=== PATIENT | female | born 1950 | race Caucasian/White ===

== ENCOUNTER 2016-10-26 06:22 | Day surgery (SDC) | payer BC ==
[2016-10-26] MEDS ORDERED: Bupivacaine 0.25%/EPINEPHrine 1:200,000 10 ML SDV INJECT ONE (07:00)
[2016-10-26] MEDS ORDERED: ceFAZolin 2 GM in Premix Bag 1 BAG IV ONE (07:00)
[2016-10-26] MEDS ORDERED: Acetaminophen/HYDROcodone 325-5 MG Tab PO PRN (07:00)
[2016-10-26] MEDS ORDERED: Lactated Ringers 1,000 ML IV SCH (07:00)
[2016-10-26] MEDS ORDERED: Bupivacaine 0.25%/EPINEPHrine 1:200,000 10 ML SDV ONE (07:21)
[2016-10-26] MEDS ORDERED: fentaNYL 100 MCG/2 ML SDV ONE (07:23)
[2016-10-26] MEDS ORDERED: Midazolam 1 MG/ML 2 ML SDV ONE (07:23)
[2016-10-26] MEDS ORDERED: Propofol 200 MG/20 ML SDV ONE (07:23)
[2016-10-26] MEDS ORDERED: Lidocaine 2% 5 ML SDV ONE (07:23)
[2016-10-26] MEDS ORDERED: ceFAZolin 1 GM Vial ONE (07:24)
[2016-10-26] MEDS ORDERED: Sodium Chloride 0.9% 20 ML ONE (07:24)
--- NOTE | 2016-10-26 07:30 | PCM.PREANE ---
Preanesthetic Assessment - Anesthesia/Transfusion/Family Hx Anesthesia History: Prior Anesthesia Without Reaction Other Type of Anesthesia Reaction Comment: Denies any known problems,Distant Relative-pseudo cholinesterone inhibitord Family History of Anesthesia Reaction: No Transfusion History: No Prior Transfusion(s) - Review of Systems General: No Symptoms Pulmonary: No Symptoms Cardiovascular: No Symptoms Gastrointestinal: No symptoms Neurological: No Symptoms Other: Reports: None - Physical Assessment O2 Sat by Pulse Oximetry: 96 Respiratory Rate: 16 Vital Signs: Last Vital Signs Temp 36.7 C 10/26/16 06:41 Pulse 71 10/26/16 06:41 Resp 16 10/26/16 06:41 BP 134/60 10/26/16 06:41 Pulse Ox 96 10/26/16 06:41 Height: 1.56 m Weight: 88.451 kg ASA Class: 3 Mental Status: Alert & Oriented x3 Airway Class: Mallampati = 2 Dentition: Reports: Normal Dentition Lungs: Clear to auscultation Cardiovascular: Regular Rate - Allergies Allergies/Adverse Reactions: Allergies Allergy/AdvReac Type Severity Reaction Status Date / Time latex Allergy Itching Verified 10/03/14 01:05 nickel Allergy Rash Verified 10/03/14 01:05 trimethobenzamide HCl Allergy Cannot Verified 10/03/14 01:05 [From Tigan] Remember Bandaids Allergy Itching Uncoded 10/03/14 01:05 Honeydew Melon Allergy Difficulty Uncoded 10/03/14 01:05 Swallowing - Acknowledgements Anesthesia Type Planned: MAC Pt an Appropriate Candidate for the Planned Anesthesia: Yes Alternatives and Risks of Anesthesia Discussed w Pt/Guardian: Yes Pt/Guardian Understands and Agrees with Anesthesia Plan: Yes Additional Comments: has coronary stent, last asa dose 2 days ago, betablocker dose last night PreAnesthesia Questionnaire HEENT History: Reports: Allergic Rhinitis, Other (See Below) Other HEENT History: wears glasses Cardiovascular History: Reports: CAD, High Cholesterol, Hypertension, [place], Stents , Other (See Below) Gastrointestinal History: Reports: Colon Polyp, GERD Genitourinary History: Reports: None 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: Musculoskeletal History: Reports: Osteoarthritis, Other (See Below) Other Musculoskeletal History: fx cassia wrist, left humerous Psychiatric History: Reports: Depression Endocrine/Metabolic History: Reports: Obesity/BMI 30+ Oncologic (Cancer) History: Reports: Other (See Below) 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 Dermatologic History: Reports: None - Past Surgical History Head Surgeries/Procedures: Reports: None HEENT Surgical History: Reports: Adenoidectomy, Tonsillectomy Cardiovascular Surgical History: Reports: Coronary Artery Stent GI Surgical History: Reports: Colonoscopy Female Surgical History: Reports: D&C Musculoskeletal Surgical History: Reports: Arthroscopic Knee, Knee Replacement Dermatological Surgical History: Reports: Skin Biopsy - SUBSTANCE USE Smoking Status *Q: Never Smoker Second Hand Smoke Exposure: No Days Per Week of Alcohol Use: 0 Number of Drinks Per Day: 1 Total Drinks Per Week: 0 Recreational Drug Use History: No - HOME MEDS Home Medications: Home Meds Citalopram Hydrobromide [Citalopram HBr] 20 mg PO BEDTIME 06/03/14 [History] Loratadine [Claritin] 1 tab PO DAILY 06/03/14 [History] Metoprolol Succinate 50 mg PO BEDTIME 05/22/16 [History] Multivitamin [Multivitamins] 1 tab PO DAILY 05/22/16 [History] Olmesartan [Benicar] 20 mg PO DAILY 05/22/16 [History] Ranitidine [Zantac] 300 mg PO BID 05/22/16 [History] Spironolactone [Aldactone] 25 mg PO DAILY 05/22/16 [History] Aspirin 81 mg PO BID 10/22/16 [History] - CURRENT (IN HOUSE) MEDS Current Meds: Current Medications Hydrocodone Bitart/Acetaminophen ([place] 325-5 Mg) 1 tab PO Q4H PRN PRN Reason: Pain Lactated Ringer's (Ringers, Lactated) 1,000 mls @ 125 mls/hr IV ASDIRECTED [facility] Last Admin: 10/26/16 06:44 Dose: 125 mls/hr Cefazolin Sodium/Dextrose 2 gm (/ Premix) 50 mls @ 100 mls/hr IV ONETIME ONE Stop: 10/26/16 07:29 Discontinued Medications Bupivacaine HCl/Epinephrine Bitart (Marcaine 0.25%/Epinephrine 1:200,000) 10 ml INJECT ONETIME ONE Stop: 10/26/16 07:01 Bupivacaine HCl/Epinephrine Bitart (Marcaine 0.25%/Epinephrine 1:200,000) Confirm Administered Dose 20 ml .ROUTE .STK-MED ONE Stop: 10/26/16 07:22 Cefazolin Sodium (Ancef) Confirm Administered Dose 2 gm .ROUTE .STK-MED ONE Stop: 10/26/16 07:25 Fentanyl (Sublimaze) Confirm Administered Dose 100 mcg .ROUTE .STK-MED ONE Stop: 10/26/16 07:24 Sodium Chloride (Normal Saline) Confirm Administered Dose 20 mls @ as directed .ROUTE .STK-MED ONE Stop: 10/26/16 07:25 Lidocaine (Xylocaine-Mpf 2%) Confirm Administered Dose 5 ml .ROUTE .STK-MED ONE Stop: 10/26/16 07:24 Midazolam HCl (Versed 1 Mg/Ml) Confirm Administered Dose 2 mg .ROUTE .STK-MED ONE Stop: 10/26/16 07:24 Propofol (Diprivan 20 Ml) Confirm Administered Dose 200 mg .ROUTE .STK-MED ONE Stop: 10/26/16 07:24
[2016-10-26 09:19] VITALS: BP 120/59
--- NOTE | 2016-10-26 09:38 | PCM48HPAN ---
Post Anesthesia Note - EVALUATION WITHIN 48HRS OF ANESTHETIC Vital Signs in Normal Range: Yes Patient Participated in Evaluation: Yes Respiratory Function Stable: Yes Airway Patent: Yes Cardiovascular Function Stable: Yes Hydration Status Stable: Yes Pain Control Satisfactory: Yes Nausea and Vomiting Control Satisfactory: Yes Mental Status Recovered: Yes
--- NOTE | 2016-10-27 10:31 | PCM.OPNOTE ---
- General Post-Op/Procedure Note Date of Surgery/Procedure: 10/26/16 Operative Procedure(s): right carpal tunnel release Pre Op Diagnosis: right capral tunnel syndrome Post-Op Diagnosis: Same Anesthesia Technique: Local, MAC Primary Surgeon: Dionne Boswell Manager Heart Failure: Jo Ann Parada Complications: None Condition: Good Free Text/Narrative:: [id number]
--- NOTE | 2016-10-27 12:20 | OR ---
SURGEON: ARMANDO THOMAS MD ELECTROMECHANICAL EQUIPMENT ASSEMBLER: GOPI Morales DATE OF PROCEDURE: 10/26/2016 PREOPERATIVE DIAGNOSIS: Right carpal tunnel syndrome. POSTOPERATIVE DIAGNOSIS: Right carpal tunnel syndrome. PROCEDURE: Right carpal tunnel release. INDICATIONS: Ms. Wayne is seen today as a 65-year-old female with carpal tunnel syndrome bilaterally. She would like to proceed with the right side first. Risks and benefits of the carpal tunnel release were discussed, and she was in agreement to proceed. Risks were including, but not limited to bleeding, infection, damage to underlying or overlying structures, possible need for future interventions, and possible scarring. PROCEDURE IN DETAIL: After informed consent was obtained and placed on the chart, the patient was brought to the operating theater and laid in the supine position. After adequate local MAC anesthesia was obtained, the area was prepped and draped in normal fashion and time-out was completed to confirm side and site. The arm was then exsanguinated and the tourniquet was inflated to 200 mmHg. Once adequately insufflated, attention was then paid to dissection over the transverse carpal ligament. A #15 blade was used to dissect through skin and subcutaneous tissues until breach to the ligament. Once adequately breached, the dissection was carried distally and proximally under direct visualization until complete release of the ligament. Once adequately released, the area was copiously irrigated and a 5-0 nylon stitch was used to close the skin in a horizontal mattress fashion. Once adequately closed, the wound was dressed with Xeroform, fluffs, and a Kerlix gauze dressing. A 2-inch ASHLEY wrap was used to cover this. The patient tolerated the procedure well. All counts and needles were correct at the end of the case. FOLLOWUP INSTRUCTIONS: The patient will see us in clinic in 10 to 14 days for suture removal sooner if any problems, questions, or concerns. She was given a prescription for pain control. ZORAIDA / BARB /[id number] MTDKimberley
== END 2016-10-26 09:40 | disposition home or self-care (01) ==
LOC: MW.SDS 06:22
PROVIDERS: ATTEND Plastic Surgery
PROC: 01N50ZZ Release Median Nerve, Open Approach (ICD-10-PCS; principal; 2016-10-26)
DX: G56.01 Carpal tunnel syndrome, right upper limb (principal); I25.10 Atherosclerotic heart disease of native coronary artery without angina pectoris; E78.00 Pure hypercholesterolemia, unspecified; I10 Essential (primary) hypertension; I25.2 Old myocardial infarction; K21.9 Gastro-esophageal reflux disease without esophagitis; M19.90 Unspecified osteoarthritis, unspecified site; F32.9 Major depressive disorder, single episode, unspecified; Z88.8 Allergy status to other drugs, medicaments and biological substances; Z91.018 Allergy to other foods; Z91.040 Latex allergy status; Z91.048 Other nonmedicinal substance allergy status; Z87.19 Personal history of other diseases of the digestive system; Z85.820 Personal history of malignant melanoma of skin; Z95.5 Presence of coronary angioplasty implant and graft; Z96.659 Presence of unspecified artificial knee joint; Z90.89 Acquired absence of other organs; Z98.890 Other specified postprocedural states; Z79.899 Other long term (current) drug therapy; Z79.82 Long term (current) use of aspirin
CPT/HCPCS: 64721; J0690; J2250; J3010; J7120; 01810; J2704

== ENCOUNTER 2016-11-07 06:30 | Day surgery (SDC) | payer BC ==
[~2016-11-07 06:30] MED LIST: Lactated Ringers 1,000 ML IV SCH
--- NOTE | 2016-11-07 07:16 | PCM.PREANE ---
Preanesthetic Assessment - Anesthesia/Transfusion/Family Hx Anesthesia History: Prior Anesthesia Without Reaction Other Type of Anesthesia Reaction Comment: Denies any known problems,Distant Relative-pseudo cholinesterone inhibitord Family History of Anesthesia Reaction: No Transfusion History: No Prior Transfusion(s) - Review of Systems General: No Symptoms Pulmonary: No Symptoms Cardiovascular: No Symptoms Gastrointestinal: No symptoms Neurological: No Symptoms Other: Reports: None - Physical Assessment NPO Status Date: 11/06/16 Height: 1.56 m Weight: 88.451 kg ASA Class: 3 Mental Status: Alert & Oriented x3 Airway Class: Mallampati = 2 Dentition: Reports: Normal Dentition ROM/Head Extension: Full Lungs: Clear to auscultation, Normal respiratory effort Cardiovascular: Regular Rate, Regular Rhythm - Allergies Allergies/Adverse Reactions: Allergies Allergy/AdvReac Type Severity Reaction Status Date / Time latex Allergy Itching Verified 10/03/14 01:05 nickel Allergy Rash Verified 10/03/14 01:05 trimethobenzamide HCl Allergy Cannot Verified 10/03/14 01:05 [From Tigan] Remember Bandaids Allergy Itching Uncoded 10/03/14 01:05 Honeydew Melon Allergy Difficulty Uncoded 10/03/14 01:05 Swallowing - Anesthesia Plan Pre-Op Medication Ordered: None - Acknowledgements Anesthesia Type Planned: General Anesthesia Pt an Appropriate Candidate for the Planned Anesthesia: Yes Alternatives and Risks of Anesthesia Discussed w Pt/Guardian: Yes Pt/Guardian Understands and Agrees with Anesthesia Plan: Yes Additional Comments: off aspirin x 1 wk, last metopralol yest pm PreAnesthesia Questionnaire HEENT History: Reports: Allergic Rhinitis, Other (See Below) Other HEENT History: wears glasses Cardiovascular History: Reports: CAD, High Cholesterol, Hypertension, [place], Stents , Other (See Below) Gastrointestinal History: Reports: Colon Polyp, GERD Genitourinary History: Reports: None 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: Musculoskeletal History: Reports: Osteoarthritis, Other (See Below) Other Musculoskeletal History: fx cassia wrist, left humerous Psychiatric History: Reports: Depression Endocrine/Metabolic History: Reports: Obesity/BMI 30+ Oncologic (Cancer) History: Reports: Other (See Below) 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 Dermatologic History: Reports: None - Past Surgical History Head Surgeries/Procedures: Reports: None HEENT Surgical History: Reports: Adenoidectomy, Tonsillectomy Cardiovascular Surgical History: Reports: Coronary Artery Stent GI Surgical History: Reports: Colonoscopy Female Surgical History: Reports: D&C Musculoskeletal Surgical History: Reports: Arthroscopic Knee, Carpal Tunnel, Knee Replacement - SUBSTANCE USE Smoking Status *Q: Never Smoker Second Hand Smoke Exposure: No Days Per Week of Alcohol Use: 0 Number of Drinks Per Day: 1 Total Drinks Per Week: 0 Recreational Drug Use History: No - HOME MEDS Home Medications: Home Meds Citalopram Hydrobromide [Citalopram HBr] 20 mg PO BEDTIME 06/03/14 [History] Loratadine [Claritin] 1 tab PO DAILY 06/03/14 [History] Metoprolol Succinate 50 mg PO BEDTIME 05/22/16 [History] Multivitamin [Multivitamins] 1 tab PO DAILY 05/22/16 [History] Olmesartan [Benicar] 20 mg PO DAILY 05/22/16 [History] Ranitidine [Zantac] 300 mg PO BID 05/22/16 [History] Spironolactone [Aldactone] 25 mg PO DAILY 05/22/16 [History] Aspirin 81 mg PO BID 10/22/16 [History] Hydrocodone/Acetaminophen [Hydrocodon-Acetaminophen 5-325] 1 tab PO ASDIRECTED PRN 10/31/16 [History] - CURRENT (IN HOUSE) MEDS Current Meds: Current Medications Hydrocodone Bitart/Acetaminophen ([place] 325-5 Mg) 1 - 2 tab PO Q4H PRN PRN Reason: Pain Lactated Ringer's (Ringers, Lactated) 1,000 mls @ 100 mls/hr IV ASDIRECTED SANDRA Cefazolin Sodium/Dextrose 2 gm (/ Premix) 50 mls @ 100 mls/hr IV ONCALL SANDRA
[2016-11-07] MEDS ORDERED: ASPIRIN PO ONE (07:34)
[2016-11-07] MEDS ORDERED: Ondansetron 4 MG/2 ML SDV ONE ×2 (07:34→12:28)
[2016-11-07] MEDS ORDERED: Propofol 200 MG/20 ML SDV ONE ×2 (07:35→12:03)
[2016-11-07] MEDS ORDERED: fentaNYL 100 MCG/2 ML SDV ONE ×2 (07:35→12:03)
[2016-11-07] MEDS ORDERED: Midazolam 1 MG/ML 2 ML SDV ONE ×2 (07:35→12:03)
[2016-11-07] MEDS ORDERED: Lidocaine 2% 5 ML SDV ONE ×2 (07:35→12:03)
[2016-11-07] MEDS ORDERED: Lidocaine 1% 50 ML MDV ONE (07:39)
[2016-11-07] MEDS ORDERED: Bupivacaine 0.25%/EPINEPHrine 1:200,000 10 ML SDV ONE (07:39)
[2016-11-07] MEDS ORDERED: ceFAZolin 2 GM in Premix Bag 1 BAG IV SCH (08:00)
[2016-11-07] MEDS ORDERED: Acetaminophen/HYDROcodone 325-5 MG Tab PO PRN (09:00)
[2016-11-07] MEDS ORDERED: diphenhydrAMINE 50 MG/ML SDV ONE (12:37)
--- NOTE | 2016-11-07 13:38 | PCM.POSTAN ---
POST ANESTHESIA ASSESSMENT - MENTAL STATUS Mental Status: alert, oriented - RESPIRATORY Respiratory Status: respiratory rate WNL, airway patent - CARDIOVASCULAR CV Status: pulse rate WNL, blood pressure stable - GASTROINTESTINAL GI Status: no symptoms - PAIN Pain Score: 0 - POST OP HYDRATION Hydration Status: adequate & stable
[2016-11-07 14:03] VITALS: BP 93/54
--- NOTE | 2016-11-07 18:59 | PCM.OPNOTE ---
- General Post-Op/Procedure Note Date of Surgery/Procedure: 11/07/16 Operative Procedure(s): left carpal tunnel release Pre Op Diagnosis: left carpal tunnel syndrome Post-Op Diagnosis: Same Anesthesia Technique: Local, MAC Primary Surgeon: Dionne Boswell Substation Superintendent: Jo Ann Parada Complications: None Condition: Good Free Text/Narrative:: Intake & Output 11/07/16 11/07/16 11/07/16 07:59 15:59 23:59 Intake Total 1899 Balance 1899
--- NOTE | 2016-11-12 09:10 | OR ---
SURGEON: ARMANDO THOMAS MD DATE OF PROCEDURE: 11/07/2016 PREOPERATIVE DIAGNOSIS: Left carpal tunnel syndrome. POSTOPERATIVE DIAGNOSIS: Left carpal tunnel syndrome. PROCEDURE: Left carpal tunnel release. ANESTHESIA: Local MAC. PROGRESSIVE ASSEMBLER AND FITTER: SANYA Pham INDICATIONS: Ms. Wayne is a 65-year-old female seen today for left carpal tunnel syndrome. She has had release of her right two weeks ago. She is here for release of the left. Risks and benefits were discussed again and she was in agreement to proceed. Risks were including, but not limited to, bleeding, infection, damage to underlying or overlying structures, possible need for future interventions and possible scarring. PROCEDURE IN DETAIL: After informed consent was obtained and placed on the chart, the patient was brought to the operating theater and laid in supine position. After adequate prepping and draping, a time-out was completed to confirm side and site. Attention was then paid to exsanguination of the arm and insufflation of the tourniquet to 200 mmHg. Once adequately completed, attention was then paid to dissection over the transverse carpal ligament. A 15 blade was used to dissect through skin and subcutaneous tissues until breach of the ligament. Attention was then paid to dissection distally and proximally until complete release of the ligament was appreciated. The area was irrigated and a 5-0 nylon stitch was then used to close in an interrupted fashion. The wound was dressed with Xeroform, fluffs, and a Kerlix gauze dressing and a 2-inch ASHLEY wrap. Tourniquet was desufflated and all counts and needles were correct at the end of the case. FOLLOWUP INSTRUCTIONS: The patient will see us in clinic in approximately 10 days or sooner if any problems, questions, or concerns. She was given a prescription for pain control. HEGGTHE / MODL /[id number]
== END 2016-11-07 14:18 | disposition home or self-care (01) ==
LOC: MW.SDS 06:30
PROVIDERS: ATTEND Plastic Surgery
PROC: 01N50ZZ Release Median Nerve, Open Approach (ICD-10-PCS; principal; 2016-11-07)
DX: G56.02 Carpal tunnel syndrome, left upper limb (principal); L57.0 Actinic keratosis; J30.9 Allergic rhinitis, unspecified; F32.9 Major depressive disorder, single episode, unspecified; I25.10 Atherosclerotic heart disease of native coronary artery without angina pectoris; E78.5 Hyperlipidemia, unspecified; K21.9 Gastro-esophageal reflux disease without esophagitis; M17.0 Bilateral primary osteoarthritis of knee; E78.00 Pure hypercholesterolemia, unspecified; I10 Essential (primary) hypertension; M75.42 Impingement syndrome of left shoulder; C43.60 Malignant melanoma of unspecified upper limb, including shoulder; M19.019 Primary osteoarthritis, unspecified shoulder; Z96.652 Presence of left artificial knee joint; Z79.82 Long term (current) use of aspirin; Z79.899 Other long term (current) drug therapy; I25.2 Old myocardial infarction; Z87.440 Personal history of urinary (tract) infections; Z86.010 Personal history of colon polyps
CPT/HCPCS: 64721; A9270; J0690; J1200; J2250; J2405; J3010; J7120; 01810; J2704

== ENCOUNTER 2016-11-12 06:52 | Day surgery (SDC) | payer BC ==
[~2016-11-12 06:52] MED LIST changes: +ceFAZolin 2 GM in Premix Bag 1 BAG IV SCH
[2016-11-12] MEDS ORDERED: Lidocaine 1% 50 ML MDV ONE (07:23)
--- NOTE | 2016-11-12 07:27 | PCM.PREANE ---
Preanesthetic Assessment - Anesthesia/Transfusion/Family Hx Anesthesia History: No Prior Anesthesia Other Type of Anesthesia Reaction Comment: Denies any known problems,Distant Relative-pseudo cholinesterone inhibitord Family History of Anesthesia Reaction: No Transfusion History: No Prior Transfusion(s) - Review of Systems General: No Symptoms Pulmonary: No Symptoms Cardiovascular: No Symptoms Gastrointestinal: No symptoms Neurological: No Symptoms Other: Reports: None - Physical Assessment NPO Status Date: 11/11/16 Height: 1.56 m Weight: 88.451 kg ASA Class: 1 Mental Status: Alert & Oriented x3 Airway Class: Mallampati = 1 Dentition: Reports: Normal Dentition ROM/Head Extension: Full Lungs: Clear to auscultation, Normal respiratory effort Cardiovascular: Regular Rate, Regular Rhythm - Allergies Allergies/Adverse Reactions: Allergies Allergy/AdvReac Type Severity Reaction Status Date / Time latex Allergy Itching Verified 11/07/16 07:59 nickel Allergy Rash Verified 11/07/16 07:59 trimethobenzamide HCl Allergy Cannot Verified 11/07/16 07:59 [From Tigan] Remember Bandaids Allergy Itching Uncoded 10/03/14 01:05 Honeydew Melon Allergy Difficulty Uncoded 10/03/14 01:05 Swallowing - Anesthesia Plan Pre-Op Medication Ordered: None - Acknowledgements Anesthesia Type Planned: General Anesthesia Pt an Appropriate Candidate for the Planned Anesthesia: Yes Alternatives and Risks of Anesthesia Discussed w Pt/Guardian: Yes Pt/Guardian Understands and Agrees with Anesthesia Plan: Yes PreAnesthesia Questionnaire HEENT History: Reports: Allergic Rhinitis, Other (See Below) Other HEENT History: wears glasses Cardiovascular History: Reports: CAD, High Cholesterol, Hypertension, [place], Stents , Other (See Below) Gastrointestinal History: Reports: Colon Polyp, GERD Genitourinary History: Reports: None 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: Musculoskeletal History: Reports: Osteoarthritis, Other (See Below) Other Musculoskeletal History: fx cassia wrist, left humerous Psychiatric History: Reports: Depression Endocrine/Metabolic History: Reports: Obesity/BMI 30+ Oncologic (Cancer) History: Reports: Other (See Below) 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 Dermatologic History: Reports: None - Past Surgical History Head Surgeries/Procedures: Reports: None HEENT Surgical History: Reports: Adenoidectomy, Tonsillectomy Cardiovascular Surgical History: Reports: Coronary Artery Stent GI Surgical History: Reports: Colonoscopy Female Surgical History: Reports: D&C Musculoskeletal Surgical History: Reports: Arthroscopic Knee, Knee Replacement Dermatological Surgical History: Reports: Skin Biopsy - SUBSTANCE USE Smoking Status *Q: Never Smoker Second Hand Smoke Exposure: No Days Per Week of Alcohol Use: 0 Number of Drinks Per Day: 1 Total Drinks Per Week: 0 Recreational Drug Use History: No - HOME MEDS Home Medications: Home Meds Citalopram Hydrobromide [Citalopram HBr] 20 mg PO BEDTIME 06/03/14 [History] Loratadine [Claritin] 1 tab PO DAILY 06/03/14 [History] Metoprolol Succinate 50 mg PO BEDTIME 05/22/16 [History] Multivitamin [Multivitamins] 1 tab PO DAILY 05/22/16 [History] Olmesartan [Benicar] 20 mg PO DAILY 05/22/16 [History] Ranitidine [Zantac] 300 mg PO BID 05/22/16 [History] Spironolactone [Aldactone] 25 mg PO DAILY 05/22/16 [History] Aspirin 81 mg PO BID 10/22/16 [History] Hydrocodone/Acetaminophen [Hydrocodon-Acetaminophen 5-325] 1 tab PO ASDIRECTED PRN #30 tablet 11/07/16 [Rx] - CURRENT (IN HOUSE) MEDS Current Meds: Current Medications Hydrocodone Bitart/Acetaminophen ([place] 325-5 Mg) 1 - 2 tab PO Q4H PRN PRN Reason: Pain Lactated Ringer's (Ringers, Lactated) 1,000 mls @ 100 mls/hr IV ASDIRECTED SANDRA Cefazolin Sodium/Dextrose 2 gm (/ Premix) 50 mls @ 100 mls/hr IV ONCALL SANDRA
[2016-11-12] MEDS ORDERED: Lidocaine 2% 5 ML SDV ONE (08:15)
[2016-11-12] MEDS ORDERED: fentaNYL 250 MCG/5 ML SDV ONE (08:16)
[2016-11-12] MEDS ORDERED: Midazolam 1 MG/ML 2 ML SDV ONE (08:16)
[2016-11-12] MEDS ORDERED: Propofol 200 MG/20 ML SDV ONE (08:16)
[2016-11-12] MEDS ORDERED: Ondansetron 4 MG/2 ML SDV ONE (08:38)
[2016-11-12] MEDS ORDERED: Ketorolac 30 MG/ML SDV ONE (08:38)
[2016-11-12] MEDS ORDERED: fentaNYL 100 MCG/2 ML SDV IVPUSH PRN (09:22)
--- NOTE | 2016-11-12 09:29 | PCM.OPNOTE ---
- General Post-Op/Procedure Note Date of Surgery/Procedure: 11/12/16 Operative Procedure(s): Left knee arthroscopy with limited synovectomy Post-Op Diagnosis: L knee pain, s/p L TKA. L knee synovitis Anesthesia Technique: General ET tube Primary Surgeon: Dominga Ferguson Arcgis Developer: Светлана Don in mLs: 5 Condition: Good Free Text/Narrative:: tt=17 min #[id number]
--- NOTE | 2016-11-12 10:12 | PCM.POSTAN ---
POST ANESTHESIA ASSESSMENT - MENTAL STATUS Mental Status: alert, oriented - RESPIRATORY Respiratory Status: respiratory rate WNL, airway patent, O2 saturation stable - CARDIOVASCULAR CV Status: pulse rate WNL, blood pressure stable - GASTROINTESTINAL GI Status: no symptoms - POST OP HYDRATION Hydration Status: adequate & stable
[2016-11-12] MEDS ORDERED: ceFAZolin 2 GM in Premix Bag 1 BAG IV SCH ×2 (12:30→20:30)
--- NOTE | 2016-11-12 13:17 | OR ---
SURGEON: Dominga Ferguson MD DATE OF PROCEDURE: 11/12/2016 PREOPERATIVE DIAGNOSES: 1. Left knee pain. 2. Status post left total knee arthroplasty. 3. Left painful total knee arthroplasty. POSTOPERATIVE DIAGNOSES: 1. Left knee pain. 2. Status post left total knee arthroplasty. 3. Left painful total knee arthroplasty. 4. Left knee synovitis. PROCEDURE: Left knee arthroscopy with limited synovectomy. SET UP MECHANIC HEADING MACHINES: Светлана Don PA-C. ANESTHESIA: General. ESTIMATED BLOOD LOSS: 5 mL. TOURNIQUET TIME: 17 minutes. COMPLICATIONS: None. DVT PROPHYLAXIS: Not indicated. IMPLANTS USED: None. BRIEF HISTORY: Beth is a 65-year-old female who has previously undergone a left total knee arthroplasty. She has been bothered by persistent lateral-sided knee pain. Due to her lack of response to conservative treatment, I did recommend surgical intervention. The risks and goals of procedure were discussed with the patient and were documented preoperatively. She agreed to proceed. DESCRIPTION OF PROCEDURE: The patient was properly identified and brought to the operating room. She was transferred from the OR cart and placed on the operating room table in supine position. General anesthesia was administered. After adequate anesthesia was obtained, a well-padded tourniquet was applied to the left lower extremity. The left lower extremity was then prepped in standard fashion using ChloraPrep solution. It was then sterilely draped. A time-out was performed to ensure correct site and procedure. Preoperative antibiotics were given. The surgical site had been marked preoperatively. An Esmarch was used to exsanguinate the left lower extremity. The tourniquet was inflated to 250 mmHg. A lateral portal arthrotomy was established. Blunt trocar and cannula were introduced into the suprapatellar pouch. Camera, inflow, and outflow were assembled. She did have some mild adhesions within the suprapatellar pouch. A medial portal was then established. These adhesions were released with the shaver. She did have some tissue overlying the patella which was also resected with the shaver. The knee was taken through a range of motion. The patella appeared to track centrally. I then extended down the lateral gutter. No loose bodies were identified. I then extended down the medial gutter. No loose bodies were identified. The medial gutter was then inspected. She did have some scar tissue noted which did overlie the medial portion of the tibial polyethylene. The shaver was used to resect this portion of the tissue. The knee was taken through a range of motion and no further impingement was noted. The total knee components appeared to be well fixed in good position. The notch was visualized. No abundant tissue was noted. The lateral gutter showed further scar tissue. I then placed the camera into the medial portal to allow better visualization of the lateral aspect of the knee. There was abundant scar tissue that had formed over the tibial tray which appeared to be causing impingement of the tissue with flexion and extension of the knee. The shaver was then used to resect this. At the completion, no further impingement was noted as the knee was taken through a range of motion. Some residual tissue surrounding the lateral inferior portion of the patella was also resected. Instruments were then removed from the knee. The portal sites were closed with 3-0 nylon. Lidocaine 1% was injected along the portal tracts. Xeroform gauze was placed over the wound and a bulky dressing was applied. The patient was awakened from her anesthetic and transferred to the operating room cart. She was brought to recovery room in stable condition. All needle and sponge counts were correct. She will be admitted postoperatively for 24 hours of IV antibiotics. We will gradually increase her activity as tolerated. OTILIO / BARB /[id number]
--- NOTE | 2016-11-12 14:31 | PCM48HPAN ---
Post Anesthesia Note - EVALUATION WITHIN 48HRS OF ANESTHETIC Vital Signs in Normal Range: Yes Patient Participated in Evaluation: Yes Respiratory Function Stable: Yes Airway Patent: Yes Cardiovascular Function Stable: Yes Hydration Status Stable: Yes Pain Control Satisfactory: Yes Nausea and Vomiting Control Satisfactory: Yes Mental Status Recovered: Yes - COMMENTS/OBSERVATIONS Free Text/Narrative:: Intravenous antibiotics required due to TKA metals.
[2016-11-12] MEDS: Acetaminophen/HYDROcodone 325-5 MG Tab PO PRN ×2 (14:46→19:43)
[2016-11-12 20:19] VITALS: BP 126/59
== END 2016-11-12 20:40 | disposition home or self-care (01) ==
LOC: MW.SDS 06:52 → MW.MS 09:48 → MW.SDS 20:40
PROVIDERS: ATTEND Orthopaedic Surgery
PROC: 0SBD4ZZ Excision of Left Knee Joint, Percutaneous Endoscopic Approach (ICD-10-PCS; principal; 2016-11-12)
DX: M65.862 Other synovitis and tenosynovitis, left lower leg (principal); M25.862 Other specified joint disorders, left knee; I25.2 Old myocardial infarction; G56.03 Carpal tunnel syndrome, bilateral upper limbs; F32.9 Major depressive disorder, single episode, unspecified; I25.10 Atherosclerotic heart disease of native coronary artery without angina pectoris; E78.5 Hyperlipidemia, unspecified; K21.9 Gastro-esophageal reflux disease without esophagitis; E78.00 Pure hypercholesterolemia, unspecified; I10 Essential (primary) hypertension; M75.42 Impingement syndrome of left shoulder; M17.0 Bilateral primary osteoarthritis of knee; M19.019 Primary osteoarthritis, unspecified shoulder; E66.9 Obesity, unspecified; Z79.82 Long term (current) use of aspirin; Z79.899 Other long term (current) drug therapy; Z88.2 Allergy status to sulfonamides; Z88.8 Allergy status to other drugs, medicaments and biological substances; Z91.018 Allergy to other foods; Z91.040 Latex allergy status; Z91.048 Other nonmedicinal substance allergy status; Z68.34 Body mass index [BMI] 34.0-34.9, adult; Z96.653 Presence of artificial knee joint, bilateral; Z95.9 Presence of cardiac and vascular implant and graft, unspecified; Z98.51 Tubal ligation status; Z90.89 Acquired absence of other organs; Z98.890 Other specified postprocedural states; Z87.19 Personal history of other diseases of the digestive system; Z87.440 Personal history of urinary (tract) infections
CPT/HCPCS: 29875; A9270; J0690; J1885; J2250; J2405; J3010; J7120; 01400; 88304; J2704

== ENCOUNTER 2017-01-07 13:12 | Observation (INO) | payer BC ==
[2017-01-07] MEDS ORDERED: Aspirin 81 MG Tab.Chew PO ONE (13:31)
--- NOTE | 2017-01-07 13:37 | EDM.PDOC ---
ED HPI GENERAL MEDICAL PROBLEM - General Chief Complaint: Chest Pain Stated Complaint: CHEST PAIN Time Seen by Provider: 01/07/17 13:32 Source of Information: Reports: Patient History Limitations: Reports: No Limitations - History of Present Illness INITIAL COMMENTS - FREE TEXT/NARRATIVE: HISTORY AND PHYSICAL: History of present illness: Patient is a 66-year-old female that presents to the emergency room today with complaints of chest pain that started earlier this morning. She does have a past medical history of MT has nitroglycerin available for when she does have chest pain. States she took 2 tablets of nitroglycerin for an initial pain of 8 out of 10, the nitroglycerin brought her pain down to a 2 out of 10. States "something just didn't feel right" so she proceeded to the emergency room. Concerned because this pain is similar to her previous pain that she experienced with an MT. 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 Simeon in April was told she has some blockage that she would need to be catheterized in the future. Currently has midsternal chest pain eating a 2 out of 10 with mild nausea. Chest pain is non-reproducible with palpation. Denies any shortness of breath, diaphoresis, headache or vision changes. He shouldn't has a past medical history of hypertension and MT. Review of systems: As per history of present illness and below otherwise all systems reviewed and negative. Past medical history: As per history of present illness and as reviewed below otherwise noncontributory. Surgical history: As per history of present illness and as reviewed below otherwise noncontributory. Social history: No reported history of drug or alcohol abuse. Family history: As per history of present illness and as reviewed below otherwise noncontributory. Physical exam: General: Nontoxic appearing 66-year-old female. Able to speak in full sentences without shortness of breath. Alert and oriented HEENT: Atraumatic, normocephalic, pupils reactive, negative for conjunctival pallor or scleral icterus, mucous membranes moist, throat clear, neck supple, nontender, trachea midline. Lungs: Clear to auscultation, breath sounds equal bilaterally, chest nontender. Heart: S1S2, regular rate and rhythm Abdomen: Soft, nondistended, nontender. Negative for masses. Negative for costovertebral tenderness. Pelvis: Stable nontender. Genitourinary: Deferred. Rectal: Deferred. Extremities: Atraumatic, negative for cords or calf pain. Neurovascular unremarkable. Neuro: Awake, alert, oriented. Cranial nerves II through XII unremarkable. Cerebellum unremarkable. Motor and sensory unremarkable throughout. Exam nonfocal. Review diagnostics with patient. Patient is currently pain-free and is willing to stay for observation. Dr. Yeh has been notified and agreeable to admit patient for observation with telemetry. Diagnostics: CBC, CMP, troponin, PT/INR, EKG, one view chest x-ray Therapeutics: Aspirin, nitroglycerin sublingual Impression: ACS Definitive disposition and diagnosis as appropriate pending reevaluation and review of above. Onset: Today Location: Reports: Chest Middle Chest Pain Score (Numeric/FACES): 2 - Related Data Allergies Allergy/AdvReac Type Severity Reaction Status Date / Time latex Allergy Itching Verified 01/07/17 13:24 nickel Allergy Rash Verified 01/07/17 13:24 trimethobenzamide HCl Allergy Cannot Verified 01/07/17 13:24 [From [facility]] Remember Bandaids Allergy Itching Uncoded 01/07/17 13:24 Honeydew Melon Allergy Difficulty Uncoded 01/07/17 13:24 Swallowing Home Meds: Home Meds Citalopram Hydrobromide [Citalopram HBr] 20 mg PO BEDTIME 06/03/14 [History] Loratadine [Claritin] 1 tab PO DAILY 06/03/14 [History] Metoprolol Succinate 50 mg PO BEDTIME 05/22/16 [History] Multivitamin [Multivitamins] 1 tab PO DAILY 05/22/16 [History] Olmesartan [Benicar] 20 mg PO DAILY 05/22/16 [History] Ranitidine [Zantac] 300 mg PO BID 05/22/16 [History] Spironolactone [Aldactone] 25 mg PO DAILY 05/22/16 [History] Aspirin 81 mg PO BID 10/22/16 [History] Acetaminophen/HYDROcodone [[place] 325-5 MG] 1 - 2 tab PO Q4H PRN #80 tablet 11/12 [Rx] Rosuvastatin Calcium [Crestor] 40 mg PO DAILY 01/07/17 [History] Past Medical History HEENT History: Reports: Allergic Rhinitis, Other (See Below) Other HEENT History: wears glasses Cardiovascular History: Reports: CAD, High Cholesterol, Hypertension, MT, Stents , Other (See Below) Gastrointestinal History: Reports: Colon Polyp, GERD Genitourinary History: Reports: None 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: Musculoskeletal History: Reports: Osteoarthritis, Other (See Below) Other Musculoskeletal History: fx cassia wrist, left humerous Psychiatric History: Reports: Depression Endocrine/Metabolic History: Reports: Obesity/BMI 30+ Oncologic (Cancer) History: Reports: Other (See Below) 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 Dermatologic History: Reports: None - Past Surgical History Head Surgeries/Procedures: Reports: None HEENT Surgical History: Reports: Adenoidectomy, Tonsillectomy Cardiovascular Surgical History: Reports: Coronary Artery Stent GI Surgical History: Reports: Colonoscopy Female Surgical History: Reports: D&C Musculoskeletal Surgical History: Reports: Arthroscopic Knee, Knee Replacement Dermatological Surgical History: Reports: Skin Biopsy Social & Family History - Family History Family Medical History: Noncontributory - Tobacco Use Smoking Status *Q: Never Smoker Second Hand Smoke Exposure: No - Caffeine Use Caffeine Use: Reports: Coffee - Alcohol Use Days Per Week of Alcohol Use: 0 Number of Drinks Per Day: 1 Total Drinks Per Week: 0 - Recreational Drug Use Recreational Drug Use: No Drug Use in Last 12 Months: No ED ROS GENERAL - Review of Systems Review Of Systems: See Below ED EXAM, GENERAL - Physical Exam Exam: See Below (CC dictation) EKG INTERPRETATION EKG Date: 01/07/17 Time: 13:15 Rhythm: NSR Rate (Beats/Min): 62 Course - Vital Signs Last Recorded V/S: Last Vital Signs Temp 36.3 C 01/07/17 13:18 Pulse 75 01/07/17 14:21 Resp 20 01/07/17 13:18 BP 86/53 L 01/07/17 14:21 Pulse Ox 94 L 01/07/17 14:21 - Orders/Labs/Meds Orders: Active Orders 24 hr Category Date Time Status Admission Status [Patient Status] [ADT] Stat ADT 01/07/17 14:31 Ordered Cardiac Monitoring [RC] . DIRECTED Care 01/07/17 13:20 Active EKG Documentation Completion [RC] STAT Care 01/07/17 13:20 Active Oxygen Therapy [RC] ASDIRECTED Care 01/07/17 13:20 Active Oxygen Therapy, ED [RC] ASDIRECTED Care 01/07/17 13:20 Active Nitroglycerin [Nitrostat] Med 01/07/17 14:00 Active 0.4 mg SL Q5M PRN Sodium Chloride 0.9% [Normal Saline] 1,000 ml Med 01/07/17 14:30 Ordered IV STAT Medication Orders Sodium Chloride (Normal Saline) 1,000 mls @ 999 mls/hr IV STAT ONE Stop: 01/07/17 15:30 Nitroglycerin (Nitrostat) 0.4 mg SL Q5M PRN PRN Reason: Chest Pain Last Admin: 01/07/17 14:16 Dose: 0.4 mg Labs: Laboratory Tests 01/07/17 01/07/17 01/07/17 Range/Units 13:35 13:35 13:35 WBC 6.89 (4.0-11.0) K/uL RBC 4.45 (4.30-5.90) M/uL Hgb 14.4 (12.0-16.0) g/dL Hct 42.4 (36.0-46.0) % MCV 95.3 (80.0-98.0) fL MCH 32.4 H (27.0-32.0) pg MCHC 34.0 (31.0-37.0) g/dL RDW Std Deviation 44.2 (28.0-62.0) fl RDW Coeff of Darci 13 (11.0-15.0) % Plt Count 201 (150-400) K/uL MPV 9.30 (7.40-12.00) fL Neut % (Auto) 47.2 L (48.0-80.0) % Lymph % (Auto) 35.1 (16.0-40.0) % [place] % (Auto) 15.8 H (0.0-15.0) % Eos % (Auto) 1.5 (0.0-7.0) % Baso % (Auto) 0.4 (0.0-1.5) % Neut # (Auto) 3.3 (1.4-5.7) K/uL Lymph # (Auto) 2.4 (0.6-2.4) K/uL [place] # (Auto) 1.1 H (0.0-0.8) K/uL Eos # (Auto) 0.1 (0.0-0.7) K/uL Baso # (Auto) 0.0 (0.0-0.1) K/uL Nucleated RBC % 0.0 /100WBC Nucleated RBCs # 0 K/uL INR 1.00 (0.86-1.11) Sodium 139 (136-146) mmol/L Potassium 4.0 (3.5-5.1) mmol/L Chloride 104 (98-110) mmol/L Carbon Dioxide 27 (21-31) mmol/L BUN 23 (6.0-23.0) mg/dL Creatinine 0.9 (0.6-1.5) mg/dL Est Cr Clr Drug Dosing 52.24 mL/min Estimated GFR (MDRD) > 60.0 ml/min Glucose 91 (60-110) mg/dL Calcium 9.8 (8.8-10.8) mg/dL Total Bilirubin 0.4 (0.1-1.5) mg/dL AST 27 (5-40) IU/L ALT 35 (8-54) IU/L Alkaline Phosphatase 51 (40-150) Troponin I (0.0-0.29) NG/ML Total Protein 6.8 (6.0-8.0) g/dL Albumin 4.1 (3.4-4.8) g/dL Globulin 2.7 (2.0-3.5) g/dL Albumin/Globulin Ratio 1.5 (1.3-2.8) 01/07/17 Range/Units 13:35 WBC (4.0-11.0) K/uL RBC (4.30-5.90) M/uL Hgb (12.0-16.0) g/dL Hct (36.0-46.0) % MCV (80.0-98.0) fL MCH (27.0-32.0) pg MCHC (31.0-37.0) g/dL RDW Std Deviation (28.0-62.0) fl RDW Coeff of Darci (11.0-15.0) % Plt Count (150-400) K/uL MPV (7.40-12.00) fL Neut % (Auto) (48.0-80.0) % Lymph % (Auto) (16.0-40.0) % [place] % (Auto) (0.0-15.0) % Eos % (Auto) (0.0-7.0) % Baso % (Auto) (0.0-1.5) % Neut # (Auto) (1.4-5.7) K/uL Lymph # (Auto) (0.6-2.4) K/uL [place] # (Auto) (0.0-0.8) K/uL Eos # (Auto) (0.0-0.7) K/uL Baso # (Auto) (0.0-0.1) K/uL Nucleated RBC % /100WBC Nucleated RBCs # K/uL INR (0.86-1.11) Sodium (136-146) mmol/L Potassium (3.5-5.1) mmol/L Chloride (98-110) mmol/L Carbon Dioxide (21-31) mmol/L BUN (6.0-23.0) mg/dL Creatinine (0.6-1.5) mg/dL Est Cr Clr Drug Dosing mL/min Estimated GFR (MDRD) ml/min Glucose (60-110) mg/dL Calcium (8.8-10.8) mg/dL Total Bilirubin (0.1-1.5) mg/dL AST (5-40) IU/L ALT (8-54) IU/L Alkaline Phosphatase (40-150) Troponin I < 0.10 (0.0-0.29) NG/ML Total Protein (6.0-8.0) g/dL Albumin (3.4-4.8) g/dL Globulin (2.0-3.5) g/dL Albumin/Globulin Ratio (1.3-2.8) Meds: Medications Generic Name Dose Route Start Last Admin Trade Name Freq PRN Reason Stop Dose Admin Sodium Chloride 1,000 mls @ 999 mls/hr 01/07/17 14:30 Normal Saline IV 01/07/17 15:30 STAT ONE Nitroglycerin 0.4 mg 01/07/17 14:00 01/07/17 14:16 Nitrostat SL 0.4 mg Q5M PRN Administration Chest Pain Discontinued Medications Generic Name Dose Route Start Last Admin Trade Name Freq PRN Reason Stop Dose Admin Aspirin 324 mg 01/07/17 13:31 Aspirin PO 01/07/17 13:32 ONETIME ONE Nitroglycerin 0.5 gm 01/07/17 14:31 Nitro-Bid 2% TOP 01/07/17 14:32 ONETIME ONE Departure - Departure Time of Disposition: 14:34 Disposition: Refer to Observation Condition: Good Clinical Impression: ACS (acute coronary syndrome) - Discharge Information Referrals: PCP,None [Primary Care Provider] - Forms: ED Department Discharge - My Orders Last 24 Hours: My Active Orders 01/07/17 13:20 Cardiac Monitoring [RC] . DIRECTED EKG Documentation Completion [RC] STAT Oxygen Therapy [RC] ASDIRECTED Oxygen Therapy, ED [RC] ASDIRECTED 01/07/17 14:00 Nitroglycerin [Nitrostat] 0.4 mg SL Q5M PRN 01/07/17 14:30 Sodium Chloride 0.9% [Normal Saline] 1,000 ml IV STAT 01/07/17 14:31 Admission Status [Patient Status] [ADT] Stat - Assessment/Plan Last 24 Hours: My Active Orders 01/07/17 13:20 Cardiac Monitoring [RC] . DIRECTED EKG Documentation Completion [RC] STAT Oxygen Therapy [RC] ASDIRECTED Oxygen Therapy, ED [RC] ASDIRECTED 01/07/17 14:00 Nitroglycerin [Nitrostat] 0.4 mg SL Q5M PRN 01/07/17 14:30 Sodium Chloride 0.9% [Normal Saline] 1,000 ml IV STAT 01/07/17 14:31 Admission Status [Patient Status] [ADT] Stat
[2017-01-07] MEDS ORDERED: Nitroglycerin 0.4 MG Tab.SL SL PRN (14:00)
[2017-01-07 14:01] LABS: CHLORIDE,CL 104 mmol/L (98-110); SODIUM,NA 139 mmol/L (136-146)
--- NOTE | 2017-01-07 14:22 | CR ---
EXAMINATION: Portable chest radiograph. HISTORY: Shortness of breath COMPARISON: 05/10/2016. FINDINGS: The trachea is midline. The cardiomediastinal silhouette is within normal limits. No pulmonary infilt rates, effusions or pneumothorax. Osseous structures appear unremarkable. IMPRESSION: No acute cardiopulmonary process.
[2017-01-07] MEDS ORDERED: Sodium Chloride 0.9% 1,000 ML IV ONE (14:30)
[2017-01-07] MEDS ORDERED: Nitroglycerin 2% Oint 1 GM UD Packet TOP ONE (14:31)
[2017-01-07] MEDS ORDERED: Ondansetron 4 MG/2 ML SDV IVPUSH PRN (15:39)
[2017-01-07] MEDS ORDERED: Acetaminophen 325 MG Tab PO PRN (15:39)
--- NOTE | 2017-01-07 15:52 | PCM.HP ---
H&P History of Present Illness - General Date of Service: 01/07/17 Admit Problem/Dx: Admission Diagnosis/Problem Admission Diagnosis/Problem Acute coronary syndrome Source of Information: Patient History Limitations: Reports: No Limitations - History of Present Illness Initial Comments - Free Text/Narative: This 66 year old female with pmh of HTN, ischemic heart disease with angioplasty and stenting to mid circumflex in 2013, dyslipidemia, and depression presented to the ED today with upper back pain, between the shoulder blade pain. She reports this started around 1 pm, she was sitting at her desk. She was worried because this pain is very similar to the pain she had when she was transferred for stenting in 2013. She reports some nausea or queasiness with this pain, it was dull achey in nature. She denied diaphoresis, SOB or palpitations. No radiation of pain, but did notice it slightly midsternal as well intermittently. She took 1 SL nitro, which didn't seem to help much, then took another and that brought the pain to a 2/10. She then came to the ED for evaluation. In eED EKG revealed SR with no ST segment changes. Troponin was negative. Labwork all WNL. Nitropaste was place in the ED and BP dropped to 80/50s, this was removed and she was given a bolus of fluids. BP now 120/60s. She last saw Dr. 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 She was cleared for surgery and did well post-operatively. It was noted in Dr. Simeon's notes, she does have stenosis of LAD, 50-70%. We will admit Beth for chest pain rule out ACS. I will attempt to contact Dr. Simeon for recommendations and follow up. Middle Chest Pain Score (Numeric/FACES): 2 - Related Data Allergies/Adverse Reactions: Allergies Allergy/AdvReac Type Severity Reaction Status Date / Time latex Allergy Itching Verified 01/07/17 13:24 nickel Allergy Rash Verified 01/07/17 13:24 trimethobenzamide HCl Allergy Cannot Verified 01/07/17 13:24 [From [facility]] Remember Bandaids Allergy Itching Uncoded 01/07/17 13:24 Honeydew Melon Allergy Difficulty Uncoded 01/07/17 13:24 Swallowing Home Medications: Home Meds Citalopram Hydrobromide [Citalopram HBr] 20 mg PO BEDTIME 06/03/14 [History] Loratadine [Claritin] 1 tab PO DAILY 06/03/14 [History] Metoprolol Succinate 50 mg PO BEDTIME 05/22/16 [History] Multivitamin [Multivitamins] 1 tab PO DAILY 05/22/16 [History] Olmesartan [Benicar] 20 mg PO DAILY 05/22/16 [History] Ranitidine [Zantac] 300 mg PO BID 05/22/16 [History] Spironolactone [Aldactone] 25 mg PO DAILY 05/22/16 [History] Aspirin 81 mg PO BEDTIME 10/22/16 [History] Acetaminophen/HYDROcodone [[place] 325-5 MG] 1 - 2 tab PO Q4H PRN #80 tablet 11/12 [Rx] Rosuvastatin Calcium [Crestor] 40 mg PO DAILY 01/07/17 [History] Past Medical History HEENT History: Reports: Allergic Rhinitis, Other (See Below) Other HEENT History: wears glasses Cardiovascular History: Reports: CAD, High Cholesterol, Hypertension, [place], Stents (stenosis of LAD, 50-70%. 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 Dermatologic History: Reports: Other (See Below) (Melanoma removed from L forearm.) - Past Surgical History Head Surgeries/Procedures: Reports: None HEENT Surgical History: Reports: Adenoidectomy, Tonsillectomy Cardiovascular Surgical History: Reports: Coronary Artery Stent GI Surgical History: Reports: Colonoscopy Female Surgical History: Reports: D&C Musculoskeletal Surgical History: Reports: Arthroscopic Knee, Knee Replacement Dermatological Surgical History: Reports: Skin Biopsy Social & Family History - Family History Family Medical History: Noncontributory - Tobacco Use Smoking Status *Q: Never Smoker Second Hand Smoke Exposure: No - Caffeine Use Caffeine Use: Reports: Coffee - Alcohol Use Days Per Week of Alcohol Use: 0 Number of Drinks Per Day: 1 Total Drinks Per Week: 0 - Recreational Drug Use Recreational Drug Use: No Drug Use in Last 12 Months: No H&P Review of Systems - Review of Systems: Review Of Systems: See Below General: Reports: No Symptoms. Denies: Fever, Chills, Malaise HEENT: Reports: No Symptoms. Denies: Headaches, Sinus Congestion, Sore Throat Pulmonary: Reports: No Symptoms. Denies: Shortness of Breath Cardiovascular: Reports: Chest Pain (scant, intermittently. Also notes is slightly to back, between shoulder blades.). Denies: Palpitations, Dyspnea on Exertion, Edema, Lightheadedness Gastrointestinal: Reports: No Symptoms Genitourinary: Reports: No Symptoms. Denies: Dysuria, Frequency, Burning, Pain Musculoskeletal: Reports: No Symptoms Skin: Reports: No Symptoms Psychiatric: Reports: No Symptoms Neurological: Reports: No Symptoms Hematologic/Lymphatic: Reports: No Symptoms Immunologic: Reports: No Symptoms Exam - Exam Exam: See Below - Vital Signs Vital Signs: Last Vital Signs Temp 97.4 F 01/07/17 13:18 Pulse 75 01/07/17 14:21 Resp 20 01/07/17 13:18 BP 86/53 L 01/07/17 14:21 Pulse Ox 94 L 01/07/17 14:21 Weight: 92.533 kg - Exam General: Alert, Oriented, Cooperative HEENT: Conjunctiva Clear, Hearing Intact, Posterior Pharynx Clear, Pupils Equal Lungs: Clear to Auscultation, Normal Respiratory Effort Cardiovascular: Regular Rate, Regular Rhythm, Normal S1, Normal S2, Other (no reproducible pain to anterior chest or upper back.). No: Irregular Rhythm, Systolic Murmur GI/Abdominal Exam: Normal Bowel Sounds, Soft, Non-Tender, No Organomegaly, No Distention, No Abnormal Bruit, No Mass, Pelvis Stable Back Exam: Normal Inspection, Full Range of Motion Extremities: Normal Inspection, Normal Range of Motion, Non-Tender, No Pedal Edema, Normal Capillary Refill Neuro Extensive - Mental Status: Alert, Oriented x3, Normal Mood/Affect, Normal Cognition Neuro Extensive - Motor, Sensory, Reflexes: CN II-XII Intact, Normal Gait, Normal Reflexes Psychiatric: Alert, Normal Affect, Normal Mood - Patient Data Result Diagrams: 01/07/17 13:35 01/07/17 13:35 EKG INTERPRETATION EKG Date: 01/07/17 Rhythm: NSR Rate (Beats/Min): 62 [place]: Normal P-Wave: Present QRS: Normal ST-T: Normal QT: Normal Comparison: No Change *Q Meaningful Use (ADM) - VTE *Q VTE Criteria *Q: - Stroke *Q Stroke Criteria *Q: - AMI *Q AMI Criteria *Q: - Problem List (1) Chest pain SNOMED Code(s): 41069797 ICD Code: R07.9 - CHEST PAIN, UNSPECIFIED Status: Acute Current Visit: Yes Qualifiers: Chest pain type: unspecified Qualified Code(s): R07.9 - Chest pain, unspecified (2) CAD (coronary artery disease) SNOMED Code(s): 50416560 ICD Code: I25.10 - ATHSCL HEART DISEASE OF [place] CORONARY ARTERY W/O ANG PCTRS Status: Chronic Current Visit: No Qualifiers: Coronary Disease-Associated Artery/Lesion type: [place] artery [place] vs. transplanted heart: [place] heart Associated angina: without angina Qualified Code(s): I25.10 - Atherosclerotic heart disease of [place] coronary artery without angina pectoris (3) Depression SNOMED Code(s): 42376153 ICD Code: F32.9 - MAJOR DEPRESSIVE DISORDER, SINGLE EPISODE, UNSPECIFIED Status: Chronic Current Visit: No Qualifiers: Depression Type: unspecified Qualified Code(s): F32.9 - Major depressive disorder, single episode, unspecified (4) HTN (hypertension) SNOMED Code(s): 96817503 ICD Code: I10 - ESSENTIAL (PRIMARY) HYPERTENSION Status: Chronic Current Visit: No Qualifiers: Hypertension type: essential hypertension Qualified Code(s): I10 - Essential (primary) hypertension (5) Hyperlipemia SNOMED Code(s): 17047651 ICD Code: E78.5 - HYPERLIPIDEMIA, UNSPECIFIED Status: Chronic Current Visit: No Qualifiers: Hyperlipidemia type: unspecified Qualified Code(s): E78.5 - Hyperlipidemia , unspecified Problem List Initiated/Reviewed/Updated: Yes Orders Last 24hrs: Active Orders 24 hr Category Date Time Status Antiembolic Devices [RC] PER UNIT ROUTINE Care 01/07/17 15:40 Active Intake and Output [RC] QSHIFT Care 01/07/17 15:39 Active Oxygen Therapy [RC] PRN Care 01/07/17 15:39 Active Up With Assistance [RC] ASDIRECTED Care 01/07/17 15:39 Active VTE/DVT Education [RC] PER UNIT ROUTINE Care 01/07/17 15:39 Active Vital Signs [RC] Q4H Care 01/07/17 15:39 Active Heart Healthy Diet [DIET] Diet 01/07/17 Dinner Active TROPONIN I [CHEM] Q6H Lab 01/07/17 19:35 Ordered TROPONIN I [CHEM] Q6H Lab 01/08/17 01:35 Ordered Acetaminophen [Tylenol] Med 01/07/17 15:39 Ordered 650 mg PO Q4H PRN Ondansetron [Zofran] Med 01/07/17 15:39 Ordered 4 mg IVPUSH Q4H PRN Sequential Compression Device [OM.PC] Per Unit Routine Oth 01/07/17 15:39 Ordered Resuscitation Status Routine Resus Stat 01/07/17 15:39 Ordered Medication Orders Acetaminophen (Tylenol) 650 mg PO Q4H PRN PRN Reason: Pain Nitroglycerin (Nitrostat) 0.4 mg SL Q5M PRN PRN Reason: Chest Pain Last Admin: 01/07/17 14:16 Dose: 0.4 mg Ondansetron HCl (Zofran) 4 mg IVPUSH Q4H PRN PRN Reason: Nausea Assessment/Plan Comment:: This 66 year old female admitted with chest pain R/O ACS 1. Chest pain: Will trend troponins and monitor on telemetry. Pain 1-2/10 now and feeling much better. I spoke with Dr. Simeon regarding admission and future follow up. He recommends as long as her troponins remain negative and she is pain free she can be discharged and he would like her to be seen on Saturday in his clinic. Nursing to arrange this appointment. 2. HTN: Continue Benicar and Spironolactone. 3. CAD: Continue Metoprolol and ASA. VTE prophylaxis: SCDs Dispo: Possible in am if troponins negative and pain free. DISCHARGE PLAN: Discharge Diagnoses; Chest pain-resolved HTN CAD Obesity Beth was monitored overnight, she had no further chest pain. Troponins negative and EKG SR with no ST segment changes. ACS ruled out. I did speak with her Quarter Seamer, Dr. Simeon yesterday who wanted her to be seen tomorrow, Saturday in his clinic for evaluation. An appointment has been arranged for tomorrow at 11:00. She is agreeable to go. She is to continue all home medications as previously prescribed. She is to return to the ED or clinic if concerns should arise.
[2017-01-07] MEDS ORDERED: Acetaminophen/HYDROcodone 325-5 MG Tab PO PRN (16:06)
[2017-01-07] MEDS ORDERED: Aspirin 81 MG Tab.Chew PO SCH ×2 (21:00)
[2017-01-07] MEDS ORDERED: Citalopram 20 MG Tab PO SCH (21:00)
[2017-01-07] MEDS ORDERED: Metoprolol Succinate 50 MG Tab.ER PO SCH (21:00)
[2017-01-08] MEDS ORDERED: Loratadine 10 MG Tab PO SCH (09:00)
[2017-01-08] MEDS ORDERED: Spironolactone 25 MG Tab PO SCH (09:00)
[2017-01-08] MEDS ORDERED: Olmesartan 20 MG Tab PO SCH (09:00)
[2017-01-08] MEDS ORDERED: Multivitamins with Iron/Calcium/Folic Acid/Minerals Tab PO SCH (09:00)
[2017-01-08] MEDS ORDERED: Rosuvastatin 10 MG Tab PO SCH (09:00)
[2017-01-08 09:35] VITALS: BP 116/56
[2017-01-08] MEDS ORDERED: Aspirin 81 MG Tab.Chew PO SCH (21:00)
== END 2017-01-08 09:50 | disposition home or self-care (01) ==
LOC: MW.ED 13:12 → MW.ICU 14:31
PROVIDERS: ADMIT Internal Medicine; ATTEND Internal Medicine
DX: R07.9 Chest pain, unspecified (principal); I25.10 Atherosclerotic heart disease of native coronary artery without angina pectoris; F32.9 Major depressive disorder, single episode, unspecified; I10 Essential (primary) hypertension; E78.5 Hyperlipidemia, unspecified; I25.2 Old myocardial infarction; K21.9 Gastro-esophageal reflux disease without esophagitis; M19.90 Unspecified osteoarthritis, unspecified site; Z86.010 Personal history of colon polyps; Z85.820 Personal history of malignant melanoma of skin; Z88.8 Allergy status to other drugs, medicaments and biological substances; Z91.018 Allergy to other foods; Z91.040 Latex allergy status; Z91.048 Other nonmedicinal substance allergy status; Z79.82 Long term (current) use of aspirin; Z79.899 Other long term (current) drug therapy; Z95.5 Presence of coronary angioplasty implant and graft; Z96.659 Presence of unspecified artificial knee joint; Z90.89 Acquired absence of other organs; Z98.890 Other specified postprocedural states
CPT/HCPCS: 36415; 71010; 80053; 84484; 85025; 85610; 93005; 99285; A9270; G0378; J7040; 99283

== ENCOUNTER 2017-03-08 09:27 | Day surgery (SDC) | payer BC ==
[~2017-03-08 09:27] MED LIST changes: +Lidocaine 2% 5 ML SDV ONE; +Midazolam 1 MG/ML 2 ML SDV ONE; +Propofol 200 MG/20 ML SDV ONE; -ceFAZolin 2 GM in Premix Bag 1 BAG IV SCH; +cefOXitin 2 GM in Premix Bag 1 BAG IV ONE; +fentaNYL 100 MCG/2 ML SDV ONE
--- NOTE | 2017-03-08 11:08 | PCM.PREANE ---
Preanesthetic Assessment - Anesthesia/Transfusion/Family Hx Anesthesia History: Prior Anesthesia Without Reaction Other Type of Anesthesia Reaction Comment: Denies any known problems,Distant Relative-pseudo cholinesterone inhibitord Family History of Anesthesia Reaction: No Transfusion History: Prior Transfusion Reaction - Review of Systems General: No Symptoms Pulmonary: No Symptoms Cardiovascular: No Symptoms Gastrointestinal: No Symptoms Neurological: No Symptoms Other: Reports: None - Physical Assessment NPO Status Date: 03/07/17 Height: 1.6 m Weight: 93.894 kg ASA Class: 3 Mental Status: Alert & Oriented x3 Airway Class: Mallampati = 2 Dentition: Reports: Normal Dentition ROM/Head Extension: Full Lungs: Clear to Auscultation, Normal Respiratory Effort Cardiovascular: Regular Rate, Regular Rhythm - Allergies Allergies/Adverse Reactions: Allergies Allergy/AdvReac Type Severity Reaction Status Date / Time latex Allergy Itching Verified 01/07/17 13:24 nickel Allergy Rash Verified 01/07/17 13:24 Sulfa (Sulfonamide Allergy Rash Verified 03/04/17 09:01 Antibiotics) - Anesthesia Plan Pre-Op Medication Ordered: None - Acknowledgements Anesthesia Type Planned: MAC Pt an Appropriate Candidate for the Planned Anesthesia: Yes Alternatives and Risks of Anesthesia Discussed w Pt/Guardian: Yes Pt/Guardian Understands and Agrees with Anesthesia Plan: Yes PreAnesthesia Questionnaire HEENT History: Reports: Allergic Rhinitis, Other (See Below) Other HEENT History: wears glasses Cardiovascular History: Reports: CAD, High Cholesterol, Hypertension, [place], Stents , Other (See Below) Gastrointestinal History: Reports: Colon Polyp, GERD Genitourinary History: Reports: None 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 HAND History: Reports: Musculoskeletal History: Reports: Osteoarthritis, Other (See Below) Other Musculoskeletal History: fx cassia wrist, left humerous Psychiatric History: Reports: Depression Endocrine/Metabolic History: Reports: Obesity/BMI 30+ Oncologic (Cancer) History: Reports: Other (See Below) 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 Dermatologic History: Reports: Other (See Below) - Past Surgical History Head Surgeries/Procedures: Reports: None HEENT Surgical History: Reports: Adenoidectomy, Tonsillectomy Cardiovascular Surgical History: Reports: Coronary Artery Stent GI Surgical History: Reports: Colonoscopy Female Surgical History: Reports: D&C Musculoskeletal Surgical History: Reports: Arthroscopic Knee, Carpal Tunnel, Knee Replacement Dermatological Surgical History: Reports: Skin Biopsy - SUBSTANCE USE Smoking Status *Q: Never Smoker Second Hand Smoke Exposure: No Days Per Week of Alcohol Use: 0 Number of Drinks Per Day: 1 Total Drinks Per Week: 0 Recreational Drug Use History: No - HOME MEDS Home Medications: Home Meds Citalopram Hydrobromide [Citalopram HBr] 20 mg PO BEDTIME 06/03/14 [History] Loratadine [Claritin] 1 tab PO DAILY 06/03/14 [History] Metoprolol Succinate 50 mg PO BEDTIME 05/22/16 [History] Multivitamin [Multivitamins] 1 tab PO DAILY 05/22/16 [History] Olmesartan [Benicar] 20 mg PO DAILY 05/22/16 [History] Ranitidine [Zantac] 300 mg PO BID 05/22/16 [History] Spironolactone [Aldactone] 25 mg PO DAILY 05/22/16 [History] Aspirin 81 mg PO BEDTIME 10/22/16 [History] Rosuvastatin Calcium [Crestor] 40 mg PO DAILY 01/07/17 [History] - CURRENT (IN HOUSE) MEDS Current Meds: Current Medications Lactated Ringer's (Ringers, Lactated) 1,000 mls @ 125 mls/hr IV ASDIRECTED SANDRA Last Admin: 03/08/17 10:17 Dose: 125 mls/hr Discontinued Medications Fentanyl (Sublimaze) Confirm Administered Dose 100 mcg .ROUTE .STK-MED ONE Stop: 03/08/17 08:47 Cefoxitin Sodium 2 gm/ Premix 50 mls @ 100 mls/hr IV ONETIME ONE Stop: 03/08/17 09:29 Cefoxitin Sodium (Mefoxin In Dextrose,Iso-Osm 2 Gm/50 Ml) Confirm Administered Dose 50 mls @ as directed .ROUTE .STK-MED ONE Stop: 03/08/17 09:08 Lidocaine (Xylocaine-Mpf 2%) Confirm Administered Dose 10 ml .ROUTE .STK-MED ONE Stop: 03/08/17 08:46 Midazolam HCl (Versed 1 Mg/Ml) Confirm Administered Dose 2 mg .ROUTE .STK-MED ONE Stop: 03/08/17 08:47 Propofol (Diprivan 20 Ml) Confirm Administered Dose 400 mg .ROUTE .STK-MED ONE Stop: 03/08/17 08:47
[2017-03-08] MEDS ORDERED: Ondansetron 4 MG/2 ML SDV IVPUSH PRN (13:30)
--- NOTE | 2017-03-08 13:33 | PCM.OPNOTE ---
- General Post-Op/Procedure Note Date of Surgery/Procedure: 03/08/17 Operative Procedure(s): Colonoscopy Pre Op Diagnosis: Personal history of colon polyps Post-Op Diagnosis: No evidence of neoplasia Anesthesia Technique: MAC (ASA III) Primary Surgeon: Pedro El Animal Nurse: Dalton Kilpatrick Condition: Good Free Text/Narrative:: DICTATION [id number] CPT CODE 26946
--- NOTE | 2017-03-08 13:44 | PCM.POSTAN ---
POST ANESTHESIA ASSESSMENT - MENTAL STATUS Mental Status: Alert, Oriented - RESPIRATORY Respiratory Status: Respiratory Rate WNL, Airway Patent, O2 Saturation Stable - CARDIOVASCULAR CV Status: Pulse Rate WNL, Blood Pressure Stable - GASTROINTESTINAL GI Status: No Symptoms - POST OP HYDRATION Hydration Status: Adequate & Stable
[2017-03-08 14:38] VITALS: BP 123/75
--- NOTE | 2017-03-08 14:40 | OR ---
SURGEON: Pedro El M.D. DATE OF PROCEDURE: 03/08/2017 OPERATION PERFORMED: Colonoscopy. DAIRY CONSULTANT: Dr. Kilpatrick, PGY-2. ANESTHESIA: MAC. ASA CLASSIFICATION: III. PREOPERATIVE DIAGNOSIS: Personal history of colon polyps. POSTOPERATIVE DIAGNOSIS: No evidence of neoplasia. DESCRIPTION OF PROCEDURE: The patient was taken to the endoscopy room, positioned on the endoscopy table in the left lateral decubitus position. Time-out was called for appropriate identification of the patient and procedure. Monitored anesthesia care was provided. The colonoscope was inserted into the rectum and advanced with minimal difficulty to the cecum where the colonoscope was retroflexed to visualize the ascending colon from below. The colonoscope was then straightened and slowly withdrawn. The cecum, ascending colon, hepatic flexure, transverse colon, splenic flexure, descending colon, sigmoid colon, and rectum were very well visualized. No tumors, polyps, diverticula, or angiodysplastic changes were noted. Once the colonoscope was withdrawn to the rectum, it was retroflexed to visualize the anal orifice from above. Again, no tumors or polyps were seen and there were no acute hemorrhoidal changes. The colonoscope was then straightened, the rectum aspirated, and the colonoscope removed. The patient tolerated the procedure well and was taken to recovery room in stable condition. KRYSTLE / BARB /[id number]
== END 2017-03-08 14:30 | disposition home or self-care (01) ==
LOC: MW.SDS 09:27
PROVIDERS: ATTEND Surgery
DX: Z12.11 Encounter for screening for malignant neoplasm of colon (principal); I10 Essential (primary) hypertension; I25.10 Atherosclerotic heart disease of native coronary artery without angina pectoris; I25.2 Old myocardial infarction; F32.9 Major depressive disorder, single episode, unspecified; K21.9 Gastro-esophageal reflux disease without esophagitis; E78.00 Pure hypercholesterolemia, unspecified; M17.12 Unilateral primary osteoarthritis, left knee; M19.019 Primary osteoarthritis, unspecified shoulder; Z91.040 Latex allergy status; Z88.2 Allergy status to sulfonamides; Z91.018 Allergy to other foods; Z91.048 Other nonmedicinal substance allergy status; Z87.440 Personal history of urinary (tract) infections; Z86.010 Personal history of colon polyps; Z79.82 Long term (current) use of aspirin; Z79.899 Other long term (current) drug therapy; Z96.653 Presence of artificial knee joint, bilateral; Z98.890 Other specified postprocedural states
CPT/HCPCS: 45378; J2250; J3010; J7120; J2704

== ENCOUNTER 2018-07-21 07:26 | Day surgery (SDC) | payer BC ==
[~2018-07-21 07:26] MED LIST changes: -Lactated Ringers 1,000 ML IV SCH; -Lidocaine 2% 5 ML SDV ONE; -Midazolam 1 MG/ML 2 ML SDV ONE; -Propofol 200 MG/20 ML SDV ONE; +Sodium Chloride 0.9% 10 ML SDV IV PRN; +Sodium Chloride 0.9% 10 ML Syringe FLUSH PRN; +Sodium Chloride 0.9% 2.5 ML Syringe FLUSH PRN; +ceFAZolin 2 GM in Premix Bag 1 BAG IV ONE; -cefOXitin 2 GM in Premix Bag 1 BAG IV ONE; -fentaNYL 100 MCG/2 ML SDV ONE
--- NOTE | 2018-07-21 07:55 | PCM.PREANE ---
Preanesthetic Assessment - Anesthesia/Transfusion/Family Hx Anesthesia History: Prior Anesthesia Without Reaction Other Type of Anesthesia Reaction Comment: Denies any known problems,Distant Relative-pseudo cholinesterone inhibitord Family History of Anesthesia Reaction: No Transfusion History: No Prior Transfusion(s) Intubation History: Unknown - Review of Systems General: No Symptoms Pulmonary: No Symptoms Cardiovascular: No Symptoms Gastrointestinal: No Symptoms Neurological: No Symptoms Other: Reports: None - Physical Assessment Height: 1.55 m Weight: 90.265 kg ASA Class: 3 Mental Status: Alert & Oriented x3 Airway Class: Mallampati = 2 Dentition: Reports: Normal Dentition Thyro-Mental Finger Breadths: 3 Mouth Opening Finger Breadths: 3 ROM/Head Extension: Limited/Partial Lungs: Clear to Auscultation, Normal Respiratory Effort Cardiovascular: Regular Rate, Regular Rhythm - Allergies Allergies/Adverse Reactions: Allergies Allergy/AdvReac Type Severity Reaction Status Date / Time latex Allergy Itching Verified 07/08/18 12:52 nickel Allergy Rash Verified 07/08/18 12:52 Sulfa (Sulfonamide Allergy Rash Verified 07/08/18 12:52 Antibiotics) - Blood Blood Available: No - Anesthesia Plan Pre-Op Medication Ordered: None - Acknowledgements Anesthesia Type Planned: MAC Pt an Appropriate Candidate for the Planned Anesthesia: Yes Alternatives and Risks of Anesthesia Discussed w Pt/Guardian: Yes Pt/Guardian Understands and Agrees with Anesthesia Plan: Yes PreAnesthesia Questionnaire HEENT History: Reports: Allergic Rhinitis, Sinusitis, Other (See Below) Other HEENT History: wears glasses Cardiovascular History: Reports: CAD, Hypertension, ID (2013), Stents (2013 , last check Dr Deep last fall - ok) Gastrointestinal History: Reports: Colon Polyp, GERD Genitourinary History: Reports: None 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 Dermatologic History: Reports: Other (See Below) - Past Surgical History Head Surgeries/Procedures: Reports: None HEENT Surgical History: Reports: Tonsillectomy Cardiovascular Surgical History: Reports: Coronary Artery Stent Other Cardiovascular Surgeries/Procedures: x1 stent 2013 GI Surgical History: Reports: Colonoscopy Female Surgical History: Reports: D&C, Tubal Ligation, Other (See Below) ( hesteroscopy) Musculoskeletal Surgical History: Reports: Arthroscopic Knee, Carpal Tunnel, Knee Replacement Other Musculoskeletal Surgeries/Procedures:: bilateral TKA Oncologic Surgical History: Reports: Other (See Below) Other Oncologic Surgeries/Procedures: melanoma removed from left forearm - SUBSTANCE USE Smoking Status *Q: Never Smoker Recreational Drug Use History: No - HOME MEDS Home Medications: Home Meds Citalopram Hydrobromide [Citalopram HBr] 20 mg PO BEDTIME 06/03/14 [History] Loratadine [Claritin] 1 tab PO BEDTIME 06/03/14 [History] Metoprolol Succinate 50 mg PO BEDTIME 05/22/16 [History] Multivitamin [Multivitamins] 1 tab PO QAM 05/22/16 [History] Olmesartan [Benicar] 20 mg PO QAM 05/22/16 [History] Ranitidine [Zantac] 300 mg PO BID 05/22/16 [History] Spironolactone [Aldactone] 25 mg PO QAM 05/22/16 [History] Aspirin 81 mg PO BEDTIME 10/22/16 [History] Rosuvastatin Calcium [Crestor] 40 mg PO BEDTIME 01/07/17 [History] - CURRENT (IN HOUSE) MEDS Current Meds: Current Medications Sodium Chloride (Saline Flush) 10 ml FLUSH ASDIRECTED PRN PRN Reason: Keep Vein Open Sodium Chloride (Saline Flush) 2.5 ml FLUSH ASDIRECTED PRN PRN Reason: Keep Vein Open Sodium Chloride (Normal Saline) 10 ml IV ASDIRECTED PRN PRN Reason: IV Use Discontinued Medications Cefazolin Sodium/Dextrose 2 gm (/ Premix) 50 mls @ 100 mls/hr IV ONETIME ONE Stop: 07/21/18 05:29
[2018-07-21] MEDS ORDERED: Atropine 1 MG/ML SDV ONE (08:09)
[2018-07-21] MEDS ORDERED: Lidocaine 2% 5 ML SDV ONE ×2 (08:09→08:10)
[2018-07-21] MEDS ORDERED: Lidocaine 1% 0 ML ONE (08:09)
[2018-07-21] MEDS ORDERED: fentaNYL 100 MCG/2 ML SDV ONE (08:10)
[2018-07-21] MEDS ORDERED: Propofol 200 MG/20 ML SDV ONE (08:10)
[2018-07-21] MEDS ORDERED: 50% Dextrose in Water 50 ML Syringe IVPUSH PRN (08:16)
[2018-07-21] MEDS ORDERED: fentaNYL 100 MCG/2 ML SDV IVPUSH PRN (08:16)
[2018-07-21] MEDS ORDERED: Atropine 0.1 MG/ML 10 ML Syringe IVPUSH PRN ×2 (08:16)
[2018-07-21] MEDS ORDERED: Albuterol 0.083% 2.5 MG/3 ML Neb Soln NEB PRN (08:16)
[2018-07-21] MEDS ORDERED: Naloxone 0.4 MG/ML Syringe IVPUSH PRN (08:16)
[2018-07-21] MEDS ORDERED: EPINEPHrine 1:10,000 1 MG/10 ML Syringe IVPUSH PRN (08:16)
[2018-07-21] MEDS ORDERED: Lactated Ringers 1,000 ML IV SCH (08:30)
[2018-07-21] MEDS ORDERED: Lidocaine 1% with EPINEPHrine 1:100,000 20 ML MDV ONE (08:56)
[2018-07-21] MEDS ORDERED: Bupivacaine 0.25% 10 ML SDV ONE (08:56)
[2018-07-21] MEDS ORDERED: Neomycin/Polymyxin B Bladder Irrigation 1 ML Amp ONE (08:57)
[2018-07-21] MEDS ORDERED: Midazolam 1 MG/ML 2 ML SDV ONE (09:20)
[2018-07-21] MEDS ORDERED: ceFAZolin 1 GM Vial ONE (09:23)
[2018-07-21] MEDS ORDERED: Sodium Chloride 0.9% 20 ML ONE (09:23)
[2018-07-21] MEDS ORDERED: Octyl 2-Cyanoacrylate 1 Tube ONE (09:53)
--- NOTE | 2018-07-21 10:10 | PCM.OPNOTE ---
<Tyesha De Souza - Last Filed: 07/21/18 10:07> - General Post-Op/Procedure Note Date of Surgery/Procedure: 07/21/18 Operative Procedure(s): Transobturator vaginal tape Pre Op Diagnosis: stress urinary incontinence Post-Op Diagnosis: same Anesthesia Technique: MAC Primary Surgeon: Tyesha Brady Secondary Surgeon: Tyesha De Souza (MS4) [facility] Pathology: none Fluid Replacement, Intraop: 1,100 EBL in mLs: 100 Complications: none known Condition: Good Free Text/Narrative:: see dictation by Dr. Brady <Tyesha Brady - Last Filed: 07/21/18 10:18> - General Post-Op/Procedure Note Anesthesia Technique: Local Free Text/Narrative:: Intake & Output 07/20/18 07/21/18 07/21/18 22:59 06:59 14:59 Intake Total 1100 Balance 1100 Dictation [id number]
--- NOTE | 2018-07-21 10:25 | PCM.POSTAN ---
POST ANESTHESIA ASSESSMENT - MENTAL STATUS Mental Status: Alert, Oriented - RESPIRATORY Respiratory Status: Respiratory Rate WNL, Airway Patent, O2 Saturation Stable - CARDIOVASCULAR CV Status: Pulse Rate WNL, Blood Pressure Stable - GASTROINTESTINAL GI Status: No Symptoms - POST OP HYDRATION Hydration Status: Adequate & Stable - OBSERVATIONS Free Text/Narrative:: no anesthesia problems
[2018-07-21 13:44] VITALS: BP 112/66
--- NOTE | 2018-07-21 16:46 | OR ---
SURGEON: Tyesha Brady M.D. DATE OF PROCEDURE: 07/21/2018 PREOPERATIVE DIAGNOSIS: Stress urinary incontinence. POSTOPERATIVE DIAGNOSIS: Stress urinary incontinence. PROCEDURE: Transobturator vaginal tape with Obtryx II system. ANESTHESIA: MAC with local. PRIMARY SURGEON: Tyesha Brady M.D. PLASTIC MACHINE OPERATOR: EDYTA Musa. ESTIMATED BLOOD LOSS: 100 mL. FLUIDS: 1100 mL of crystalloid. COMPLICATIONS: None. FINDINGS: Urethral hypermobility with stress urinary incontinence. DISPOSITION: The patient to PACU, stable. INDICATIONS: Beth is a 67-year-old female, who has ongoing difficulties with urinary incontinence. Cystometry indicates she does have mixed incontinence, but mostly stress urinary incontinence at this time. After discussing options, she would like to proceed with surgical intervention in the form of mid urethral sling. Risks of the procedure have been discussed with her. Proper consent obtained. PROCEDURE IN DETAIL: The patient was taken to the operating room where she underwent MAC anesthetic, was then placed in modified dorsal lithotomy position, and was prepped and draped in the usual sterile fashion. SCDs to lower extremities. Bladder was drained. She received Ancef prophylactically. Time-out was performed. Care was taken on either side to palpate the adductor longus tendon muscle directly below this. Notching was felt in the pubic ramus and was marked with a marking pen. This was in line with the urethral meatus, clitoris. A weighted speculum was placed posteriorly along the vagina. The region of the groin incisions was infiltrated with local anesthetic. Please see nurse's notes for total of local dispensed during the procedure. This region was infiltrated as well as behind the bone. The groin incisions were now gently created using the #11 blade scalpel just below the urethral meatus along the midline of the vaginal mucosa anteriorly. This region was grasped with an Allis clamp. This region was also infiltrated with local anesthetic along the urethra and along the periurethral spaces on either side. Using a #15 blade scalpel, a sagittal midline incision was made along the anterior vaginal mucosa 1 cm below the urethral meatus. The edge of the mucosa was now grasped with an Allis clamp and the periurethral spaces were further dissected to the medial aspect of the pubic bone sharply and bluntly on either side. Once adequate dissection had taken place, attention was turned to introducing the Obtryx introducer along the patient's left side. The introducer was placed through the left groin incision, perforating the transobturator membrane muscle, rotating behind the pubic bone, and exiting through the vaginal incision. The tape was attached and removed through the port of entry. The sulcus was inspected and found to be intact. The introducer was trimmed from the tape. Similar aspect was performed on the patient's right side. The introducer was placed through the right groin incision, rotated behind the pubic bone after perforating the transobturator membrane muscle, and exiting the vaginal incision. The tape was attached and removed to the port of entry. The sulcus was once again inspected and found to be intact. The introducer was trimmed from this side of the tape. The tape was tented downward in the midline while the tape was gently tightened. The sheaths were now infiltrated with Neosporin saline solution. The secure point along the midline of the tape was now trimmed, which allowed me to release the overlying sheaths from the underlying tape on either side. These sheaths were removed while tenting the tape downward in the midline. Thorne catheter now was reintroduced. The region along the urethra was closely inspected. No region of perforation was noted. The catheter easily was introduced through the urethra. The bladder was now backfilled with 240 mL of sterile water. The Thorne catheter was removed and with Valsalva maneuvers was able to tighten the tape until the leakage was minimized. The tape was now trimmed on either side of the groin incision edge. The groin incisions were reapproximated using Dermabond and the vaginal mucosal incisions were closed using 3-0 Vicryl in a continuous running locked fashion. The vaginal sulcus was inspected and found to be intact on either side. Hemostasis appeared evident. Sponge, instrument, and needle counts correct x2. All instruments were removed from the vagina. The Thorne catheter was replaced and the patient will go to PACU with the catheter in place to undergo removal of Thorne by instillation in the day surgery unit. The patient tolerated the procedure well. Once again, sponge, instrument, and needle counts correct x2. She will go to PACU in stable condition. BETO / BARB /[id number]
== END 2018-07-21 12:50 | disposition home or self-care (01) ==
LOC: MW.SDS 07:26
PROVIDERS: ATTEND Obstetrics & Gynecology
DX: N36.41 Hypermobility of urethra (principal); N39.3 Stress incontinence (female) (male); I10 Essential (primary) hypertension; E66.9 Obesity, unspecified; Z68.38 Body mass index [BMI] 38.0-38.9, adult; E78.5 Hyperlipidemia, unspecified; M17.0 Bilateral primary osteoarthritis of knee; E78.00 Pure hypercholesterolemia, unspecified; Z87.891 Personal history of nicotine dependence; Z79.82 Long term (current) use of aspirin; Z88.2 Allergy status to sulfonamides; Z79.899 Other long term (current) drug therapy
CPT/HCPCS: 36415; 57288; 85027; A9270; C1771; J0690; J2001; J2250; J2704; J3010; J3490; J7120; J0461